=== PATIENT | female | born 1995 | race African-American/Black ===

== ENCOUNTER 2017-05-28 15:50 | Inpatient (IN) ==
--- NOTE | 2017-05-28 16:55 | Ultrasound Report ---
History: Right-sided abdominal pain Date: 05/28/2017 Study: Gallbladder ultrasound Comparison exam: No previous gallbladder ultrasound available Real-time ultrasound images are captured and archived. There are more than 5 highly echogenic foci with posterior acoustic shadowing compatible with gallstones which move within the lumen of the gallbladder. There is no gallbladder wall thickening or reported sonographic Brooke sign. There is no abnormal biliary dilatation. The common bile duct measures 4.4 mm diameter. The liver, pancreas, and right kidney are identified and appear normal. The partially visualized abdominal aorta and IVC are normal where seen. Impression: Cholelithiasis PROCEDURE INTERPRETED AT [facility] DEPARTMENT OF RADIOLOGY Final Report Signed by: Dr. Veronique Gupta
--- NOTE | 2017-05-28 17:46 | Emergency Department Note ---
Brayan Madsen Manpreet, am scribing for, and in the presence of, Thuy Moore DO 16: 26. Oscar Madsen Debra, DO, personally performed the services described in this documentation, ascribed by Jules Schmidt in my presence, and it is both accurate and complete 737 . Arrival - Arrival Chief Complaint: Abdominal / Flank Pain Stated Complaint: PANCREATITIS ED Nursing Triage Note: Pt is transfer from [facility] ER for pancreatitis and gallstones - pt has had demerol 25mg and phenergen 25mg ROENTGENOLOGIST Mode of Arrival: Ambulatory Limitations: No Limitations Source: Patient - History of Present Illness HPI Narrative: Pt is a 21 y/o female who reports to the ED from [facility] ER with CC of Abd and flank pain. Pt states the pain is accompanied by nausea but denies nausea or fever. Pt reports of EtOH use once a month and her last meal was at 0900 this morning. No other pains/complaints reported to ED. Onset (ago): day(s) Consistency: constant Severity: moderate Severity scale (1-10): 4 Quality: cramping Date of Last Menstrual Period: may 22 Allergies/Adverse Reactions: Allergies Allergy/AdvReac Type Severity Reaction Status Date / Time No Known Allergies Allergy Verified 06/27/15 17:16 Home Medications: Home Medications Medication Instructions Recorded Confirmed Type No Known Home Medications [No 05/28/17 05/28/17 History Known Home Medications] Review of System - Review of System 12 point system: reviewed and no additional remarkable complaints except as stated - Review of System Constitutional: Absent: chills, diaphoresis, fever, weakness Respiratory: Absent: respiratory distress Cardiovascular: Absent: chest pain, dyspnea on exertion Gastrointestinal: Present: abdominal pain, nausea. Absent: vomiting, diarrhea Musculoskeletal: Absent: arm pain, back pain, lower back pain, neck pain Neurological: Absent: headache Medical,Surgical,& Family Hx - Medical History Cardio: No history of: Cerebrovascular Disease Reproductive: No history of: Ectopic , Complication - Surgical History Thoracic Surgeries: Patient denies;: Lobectomy Reproductive Surgeries: Patient denies;: Section - Social History Smoking Status: Never smoker Frequency of Alcohol Use: None Type of Drug Use: None Exam Vital Signs: Vital Signs Temperature 97.2 F L 05/28/17 15:55 Pulse Rate 68 05/28/17 16:28 Respiratory Rate 20 05/28/17 16:28 Blood Pressure 111/67 05/28/17 16:28 O2 Sat by Pulse Oximetry 100 05/28/17 15:55 - General General appearance: alert - Head Head exam: Present: atraumatic, normocephalic, normal inspection - Eye Eye exam: Present: normal appearance, PERRL, EOMI - ENT ENT exam: Present: normal exam, normal oropharynx, mucous membranes moist, TM's normal bilaterally - Neck Neck exam: Present: normal inspection, full ROM, trachea midline. Absent: tenderness, thyromegaly - Chest Chest inspection: Present: normal inspection, symmetric chest wall rise. Absent : tenderness - Respiratory Respiratory exam: Present: normal lung sounds bilaterally. Absent: accessory muscle use, respiratory distress - Cardiovascular Cardiovascular exam: Present: regular rate, normal rhythm, normal heart sounds - Abdominal Exam Abdominal exam: Present: soft, tenderness (RUQ tenderness), normal bowel sounds. Absent: distention, guarding, rebound - Extremities Exam Extremities exam: Present: normal inspection, full ROM. Absent: tenderness - Back Exam Back exam: Present: normal inspection, full ROM. Absent: tenderness - Neurological Exam Neurological exam: Present: alert, oriented X3, CN II-XII intact, reflexes normal. Absent: normal gait - Psychiatric Psychiatric exam: Present: normal affect, normal mood - Skin Skin exam: Present: warm, dry, intact, normal color. Absent: pallor Course Course Narrative: spoke with hospitalist service who will admit pt. pt is stable at this time Disposition Clinical Impression: Abdominal pain Case discussed with: patient Disposition: Still a Patient Condition: Stable Time of Disposition: 17:58
[2017-05-28] MEDS ORDERED: ACETAMINOPHEN 325 MG TABLET PO PRN (18:43)
[2017-05-28] MEDS ORDERED: ZALEPLON 5 MG CAPSULE PO PRN (18:43)
[2017-05-28] MEDS ORDERED: HYDROmorphone 2 MG/1 ML VIAL IV PRN (18:43)
[2017-05-28] MEDS ORDERED: ONDANSETRON 4 MG/2 ML VIAL IV PRN (18:43)
--- NOTE | 2017-05-28 19:07 | Hospitalist History & Physical ---
<Saloni Ya - Last Filed: 05/28/17 19:00> Assessment and Plan (1) Abdominal pain Status: Acute Assessment and plan: Admit to the hospitalist service. IVF hydration. prn pain medication. Ice chips only. Plans to advance diet tomorrow. Recheck labs in am. Current Visit: Yes (2) Vaginal delivery Status: Chronic Current Visit: No History of Present Illness Chief complaint: abdominal pain History of present illness: Ms. Kahn is a 21 year old female with no medical history that presents to the ED via EMS as a transfer from [facility] for evaluation of abdominal and flank pain. Pt. states that pain started abruptly Thursday. There was nausea and mild shortness of breath associated with the pain but no vomiting noted. Pt also denies fever, chills, night sweats, or chest pain. She is accompanied by her who is present at the bedside. Pt. reports using alcohol but not in excess and is not aware of high cholesterol. Labs were reviewed from outside facility and amylase was 229/lipase 4010. CT abd/pelvis revealed meseneteric lymphadenopathy and fecal stasis. Pt. will be admitted to the hospitalist service for further eval and treatment. Home Medications Medication Instructions Recorded Confirmed Type No Known Home Medications [No 05/28/17 05/28/17 History Known Home Medications] Allergies Allergy/AdvReac Type Severity Reaction Status Date / Time No Known Allergies Allergy Verified 06/27/15 17:16 Medical,Surgical,& Family Hx - Medical History Cardio: No history of: Cerebrovascular Disease Reproductive: No history of: Ectopic , Complication - Surgical History Thoracic Surgeries: Patient denies;: Lobectomy Reproductive Surgeries: Patient denies;: Section - Family History Family History: noncontributory - Social History Smoking Status: Never smoker Frequency of Alcohol Use: None Type of Drug Use: None Marital Status: Lives With:: Spouse Functional capacity: independent ambulation - Constitutional Constitutional: Absent: chills, fever(s) - EENT Eyes: Absent: blurry vision, loss of vision Ears: Absent: decreased hearing Nose, mouth and throat: Absent: dysphagia, headache(s) - Cardiovascular Cardiovascular: Absent: chest pain at rest, edema, radiating jaw, neck or arm pain - Respiratory Respiratory: Present: dyspnea - Gastrointestinal Gastrointestinal: Present: nausea. Absent: vomiting - Genitourinary Genitourinary: Absent: difficulty urinating, hematuria - Musculoskeletal Musculoskeletal: Absent: back pain - Neurological Neurological: Absent: confusion, dizziness - Psychiatric Psychiatric: Absent: anxiety, depression - Endocrine Endocrine: Present: heat intolerance. Absent: polyuria - Hematologic/Lymphatic Hematologic/Lymphatic: Absent: easy bruising Exam - Constitutional Vitals: Period Temp Pulse Resp BP Sys/Valladares Pulse Ox Last 24 Hr 97.2 F 59-88 16-20 101-126/66-82 99-100 General appearance: no acute distress, over weight - Head Head exam: Present: normal inspection, normocephalic - Eye Eye exam: Present: EOMI. Absent: scleral icterus Pupils: Present: CEDRIC. Absent: fixed - ENT ENT exam: Present: normal exam - Respiratory Respiratory exam: Present: clear to auscultation bilaterally. Absent: wheezes - Cardiovascular Cardiovascular exam: Present: regular rate and rhythm. Absent: JVD - GI/Abdominal GI/Abdominal exam: Present: normal bowel sounds, tenderness, soft - Extremities Exam Extremities exam: Present: normal capillary refill, full ROM. Absent: edema - Neurological Exam Neurological exam: Present: alert, oriented X3 - Psychiatric Psychiatric exam: Present: normal affect, normal mood - Skin Skin exam: Present: normal color, warm, dry Results - Labs Labs: Labs were reviewed in the ED from outside facility WBC 4.1 RBC 3.97 Hgb 11.6 HCT 35.6 Platelets 248 Glucose 105 BUN 18 Creatinine 0.9 Calcium 8.6 Sodium 141 Potassium 4.3 Chloride 104 Alkaline Phosphate 123 ALT 377 AST 410 Amylase 229 Lipase 4010 <White,Genia R - Last Filed: 05/29/17 08:17> Assessment and Plan (1) Pancreatitis Status: Acute Current Visit: Yes (2) Thyroid goiter Status: Acute Assessment and plan: tsh and thyroid us Current Visit: Yes History of Present Illness History of present illness: Ms. Kahn is a 21 year old female seen and examined. History and physical reviewed and edited. Medical,Surgical,& Family Hx - Medical History Other: History of: Miscellaneous Medical Problems (non) - Surgical History Additional Surgical History: none - Family History Family History: noncontributory Family History: Denies;: Family Diabetes, Family Heart Disease, Family Stroke - Respiratory Respiratory: Absent: dyspnea on exertion, snoring - Endocrine Endocrine: Absent: fatigue - Hematologic/Lymphatic Hematologic/Lymphatic: Absent: easy bleeding Exam - Constitutional Vitals: Period Temp Pulse Resp BP Sys/Valladares Pulse Ox Last 24 Hr 97.2 F-97.6 F 58-88 16-20 101-127/51-82 97-100 - Neck Neck exam: Present: thyromegaly. Absent: lymphadenopathy - Neurological Exam Neurological exam: Present: CN II-XII intact, reflexes normal. Absent: motor sensory deficit Results - Labs CBC & BMP: 05/29/17 04:42 05/29/17 04:42 Lab Results: I have reviewed the past 24 hour labs - Diagnostic Findings Procedure: Ultrasound: report reviewed by me (cholelithiasis )
[2017-05-28] MEDS: SODIUM CHLORIDE 0.9% 1,000 ML IV SCH (20:28)
[2017-05-28] MEDS: ENOXAPARIN 40 MG/0.4 ML SYRINGE SUBCUT SCH (22:42)
[2017-05-29] MEDS: SODIUM CHLORIDE 0.9% 1,000 ML IV SCH ×6 (02:55→21:15)
[2017-05-29 05:16] LABS: Basophils % 0.6 % (0.0-0.8); Eosinophils # 0.2 10*3/uL (0.0-0.87); Eosinophils % 4.5 % (0.00-10.9); Hematocrit 33.6 VOL% (35.7-47.0); Hemoglobin 11.4 GM/DL (12.0-16.0); Immature Granulocytes % 0.3 %; Immature Granulocytes Absolute 0.01 #; Lymphocytes # 1.7 10*3/uL (1.4-4.0); Lymphocytes % 50.3 % (21.3-54.2); Mean Corpuscular HGB Conc 33.9 GM/DL (32-36); Mean Corpuscular Hemoglobin 30 PG (27-34); Mean Corpuscular Volume 87.5 FL (87-102); Mean Platelet Volume 10.5 FL (9.6-12.0); Monocytes # 0.3 10*3/uL (0.11-0.8); Monocytes % 9.3 % (1.7-12.7); Neutrophils # 1.2 10*3/uL (1.4-7.4); Platelet Count 218 T/CUMM (130-400); Red Blood Count 3.84 MC/CUMM (3.8-5.5); Red Cell Distribution Width 12.8 % (9.3-17.3); White Blood Count 3.3 T/CUMM (4-12)
[2017-05-29 05:55] LABS: Eosinophils 2 % (0-10); Lymphocytes 54 % (20-55); Platelet Estimate Normal; Segmented Neutrophils 37 % (50-85); Total Cells Counted 100
[2017-05-29 06:04] LABS: Albumin 3.1 G/DL (3.4-5.0); Bilirubin,Total 0.9 MG/DL (0.2-1.0); Calcium 8.5 MG/DL (8.5-10.1); Potassium 3.9 MMOL/L (3.5-5.1); Risk Ratio 2.24; Total Protein 6.2 G/DL (6.4-8.3)
[2017-05-29 08:44] LABS: Free T4 (Free Thyroxine) 1.21 NG/DL (0.76-1.46); Thyroid Stimulating Hormone 0.634 uIU/ml (0.358-3.74)
--- NOTE | 2017-05-29 09:03 | Ultrasound Report ---
Exam: Thyroid sonogram Date: 05/29/2017 8:19 AM Indication: Thyroid nodules Comparison: None Findings: Right Lobe: 4.3 x 1.2 x 1.2 cm. Normal color flow without nodularity Left Lobe: 3.8 x 0.8 x 1.2 cm . Normal color flow without nodularity Isthmus: 3.4 mm no nodules Impression: Normal thyroid sonogram. Ultrasound images were stored and captured The Ultrasound images were captured and stored. PROCEDURE INTERPRETED AT [facility] DEPARTMENT OF RADIOLOGY Final Report Signed by: Dr. Aaron Beckford
--- NOTE | 2017-05-29 11:23 | Hospitalist Progress Note ---
Assessment and Plan (1) Pancreatitis Status: Acute Assessment and plan: lipase better now, advance diet, probably due to stone which has now passed will need GB out. Will schedule outpatient followup with Dr. Nazario Current Visit: Yes (2) Thyroid goiter Status: Acute Assessment and plan: tsh pending and thyroid us no nodules Current Visit: Yes Hospitalist: Subjective Interval history: Feels better today, advance diet. Will send for thyroid US Exam - Constitutional Vitals: Period Temp Pulse Resp BP Sys/Valladares Pulse Ox Last 24 Hr 97.2 F-97.8 F 58-88 16-20 101-127/51-82 95-100 Exam: Heart Rate-[RRR] Lungs-[CTAB] GI-[+bs soft, NT] Ext-[no edema] Neuro [Motor 5/5], [alert and oriented times 3] psych [normal mood and affect] General [no acute distress] Results - Labs CBC & BMP: 05/29/17 04:42 05/29/17 04:42 Lab Results: I have reviewed the past 24 hour labs - Diagnostic Findings Procedure: Ultrasound: report reviewed by me (no thyroid nodules)
[2017-05-29 13:18] LABS: Hepatitis B Core IgM Quant 0.13 Index; Hepatitis B Core IgM Result Negative (Negative)
[2017-05-29 13:27] LABS: Hepatitis A Ab IgM Quant 0.07 Index; Hepatitis A Ab IgM Result Negative (Negative); Hepatitis B Surface Ag Quant < 0.10 Index; Hepatitis B Surface Ag Result Negative (Negative); Hepatitis C Virus Ab Quant 0.02 Index; Hepatitis C Virus Ab Result Negative (Negative)
[2017-05-29] MEDS: ENOXAPARIN 40 MG/0.4 ML SYRINGE SUBCUT SCH (21:13)
[2017-05-30] MEDS: SODIUM CHLORIDE 0.9% 1,000 ML IV SCH ×2 (01:46→11:18)
[2017-05-30 07:25] LABS: Albumin 3.1 G/DL (3.4-5.0); Bilirubin,Total 0.5 MG/DL (0.2-1.0); Calcium 8.8 MG/DL (8.5-10.1); Potassium 4.1 MMOL/L (3.5-5.1); Total Protein 6.2 G/DL (6.4-8.3)
[2017-05-30 08:25] VITALS: BP 116/76
--- NOTE | 2017-05-30 08:51 | Discharge Summary ---
<Saloni Ya - Last Filed: 05/30/17 08:35> Hospital Course - Hospital Course Hospital Course: Ms. Kahn is a 21 year old female with no medical history that presents to the ED via EMS on 05/28 as a transfer from [facility] for evaluation of abdominal and flank pain. Pt. states that pain started abruptly Thursday. There was nausea and mild shortness of breath associated with the pain but no vomiting noted. Pt. reports using alcohol but not in excess and is not aware of high cholesterol. Labs were reviewed from outside facility and amylase was 229/ lipase 4010. CT abd/pelvis revealed meseneteric lymphadenopathy and fecal stasis. Pt. was admitted to the hospitalist service for further eval and treatment. Pt. was treated with IVFs and pain medication. Lipase level improved. Patient's diet was advanced and she began to feel better. Pt. also underwent a thyroid ultrasound for goiter but the results were normal. Pt. is stable today and ready for discharge. Dr. Nazario will follow up with her on an outpatient basis. Patient seen and examined. Hospital course reviewed and edited. Gallbladder shows stones. Patient probably had gallstone pancreatitis but it resolved on its own. Patient will need to have her gallbladder removed otherwise she will develop pancreatitis again. Diagnosis - Discharge Diagnosis (1) Abdominal pain Status: Acute (2) Vaginal delivery Status: Chronic Specialty Discharge - Follow Up or Referrals Follow up with: Braydon Nazario MD [Physician] - 06/15/17 1:30 pm Discharge Plan - Discharge Data Disposition: Disch To Home/Self Care - Discharge Medications New HYDROcodone/ACETAMIN 7.5-325 [[place] 7.5-325] 1 tablet PO Q4H PRN #30 tablet PRN Reason: Pain Moderate (4-7) - Follow Up or Referral Follow Up: Braydon Nazario MD [Physician] - 06/15/17 1:30 pm - Forms/Instructions Exam - Constitutional Vitals: Period Temp Pulse Resp BP Sys/Valladares Pulse Ox Last 24 Hr 97.5 F-98.3 F 67-87 16-20 102-121/57-76 99-100 Discharge Results Procedures and tests throughout hospitalization: Pending Orders 05/31/17 04:00 Lipase IN AM Labs on day of discharge: Labs from last 24 hours 05/30/17 05/30/17 05/29/17 05:48 05:48 04:38 Sodium 143 Potassium 4.1 Chloride 109 H Carbon Dioxide 27 Anion Gap 11.1 BUN 7 Creatinine 0.70 GFR Calculation 169 BUN/Creatinine Ratio 10.00 Glucose 81 Calculated Osmolality 281.0 Calcium 8.8 Total Bilirubin 0.50 AST 96 H ALT 236 H Alkaline Phosphatase 111 Total Protein 6.2 L Albumin 3.1 L Globulin 3.1 Albumin/Globulin Ratio 1.0 L Lipase 112.0 D Hepatitis A IgM Ab Negative Hep Bs Antigen Negative Hep B Core IgM Ab Negative Hepatitis C Antibody Negative DS: Provider Date of admission: 05/28/17 18:20 Primary care physician: . No PCP Attending physician on admission: Rigoberto Aburto MD Discharging clinician: Saloni Ya NP <Genia Vallejo - Last Filed: 05/30/17 10:05> Hospital Course - Time spent with patient Time with patient DS: Less than 30 minutes (20 min) Diagnosis - Discharge Diagnosis (1) Pancreatitis Status: Acute (2) Thyroid goiter Status: Acute Discharge Plan - Discharge Data Condition at Discharge: Stable Discharge Diet: other (soft low fat diet ) Activity: resume usual activities as tolerated Hygiene: no restrictions Weight Bearing at Discharge: full weight bearing Driving: no restrictions Exam - Constitutional General appearance: no acute distress, over weight - Respiratory Respiratory exam: Present: clear to auscultation bilaterally. Absent: rhonchi, wheezes - Cardiovascular Cardiovascular exam: Present: regular rate and rhythm. Absent: systolic murmur - GI/Abdominal GI/Abdominal exam: Present: normal bowel sounds, soft. Absent: tenderness
[2017-05-30] MEDS ORDERED: BISACODYL 5 MG TABLET PO ONE (10:56)
== END 2017-05-30 11:30 | disposition home or self-care (01) | DRG 440 ==
LOC: N.ED 15:50 → SUATTDRO 18:20 → N.EDINP 18:20 → N.5E 21:42
PROVIDERS: ADMIT Internal Medicine; ATTEND Internal Medicine